=== PATIENT | female | born 1945 | race Caucasian/White ===

== ENCOUNTER → 2018-11-06 | Outpatient (CLI) | payer MEDICARE ==
--- NOTE | ~2018-11-06 | SHMRC ---
[place], [place] [facility] NAME: ELLIE AVILA UNIT #: [id number] ROOM: DOCTOR: UBALDO BRYANT Patient Name: ELLIE AVILA. Date: 11/06/2018 Patient Number: [id number] Treating Therapist:Alicia Marshall Patient Date of : 1945 Location: [facility] Patient Reason for Visit SH Electronic Signature(s) Signed By: Date: Alicia Marshall 11/06/2018 09:47:41 Alicia Marshall 11/06/2018 15:33:16 Entered By: Alicia Marshall on 11/06/2018 09:46:23 Arrival Information Patient Name: ELLIE AVILA. Date: 11/06/2018 Patient Number: [id number] Treating Therapist:Alicia Marshall Patient Date of : 1945 Location: [facility] Patient Subjective Initial evaluation completed to generate medical record. [facility]. Electronic Signature(s) Signed By: Date: Alicia Marshall 11/06/2018 09:47:41 Alicia Marshall 11/06/2018 15:33:16 Entered By: Alicia Marshall on 11/06/2018 09:46:23 Medical History Patient Name: ELLIE AVILA. Date: 11/06/2018 Patient Number: [id number] Treating Therapist:Alicia Marshall Patient Date of : 1945 Location: [facility] Patient Past Medical History Electronic Signature(s) Signed By: Date: Alicia Marshall 11/06/2018 09:47:41 Alicia Marshall 11/06/2018 15:33:16 Entered By: Alicia Marshall on 11/06/2018 09:46:23 Allergy List Patient Name: ELLIE AVILA. Date: 11/06/2018 Patient Number: [id number] Treating Therapist:Alicia Marshall Patient Date of : 1945 Location: [facility] Patient Electronic Signature(s) Signed By: Date: Alicia Marshall 11/06/2018 09:47:41 Alicia Marshall 11/06/2018 15:33:16 Entered By: Alicia Marshall on 11/06/2018 09:46:23 Arrival Information Patient Name: ELLIE AVILA. Date: 11/06/2018 Patient Number: [id number] Treating Therapist:Alicia Marshall Patient Date of : 1945 Location: [facility] Patient [place], [place] [facility] NAME: ELLIE AVILA UNIT #: [id number] ROOM: DOCTOR: UBALDO BRYANT Initial evaluation completed to generate medical record. [facility]. Electronic Signature(s) Signed By: Date: Alicia Marshall 11/06/2018 09:47:41 Alicia Marshall 11/06/2018 15:33:16 Entered By: Alicia Marshall on 11/06/2018 09:46:23 [facility]: ELLIE AVILA. Date: 11/06/2018 Patient Number: [id number] Treating Therapist:Alicia Marshall Patient Date of : 1945 Location: [facility] Patient Diagnosis R13.10 Dysphagia, unspecified Visit Start Time 8:30 AM Visit End Time 9:30 AM Visit Duration 60 minutes Procedures CPT [place] Code Intervention Modifier Minutes Units 29817 5203039 MOTION FLUOROSCOPY/SWALLOW 60 1 Total Timed Minutes 0 Total Treatment Minutes 60 Electronic Signature(s) Signed By: Date: Alicia Marshall 11/06/2018 09:47:41 Alicia Marshall 11/06/2018 15:33:16 Entered By: Alicia Marshall on 11/06/2018 09:47:13 Chief Complaint Patient Name: ELLIE AVILA. Date: 11/06/2018 Patient Number: [id number] Treating Therapist:Alicia Marshall Patient Date of : 1945 Location: [facility] Patient Reason for Visit SH Electronic Signature(s) Signed By: Date: Alicia Marshall 11/06/2018 09:47:41 Alicia Marshall 11/06/2018 15:33:16 Entered By: Alicia Marshall on 11/06/2018 09:46:23 Medical History Patient Name: ELLIE AVILA. Date: 11/06/2018 Patient Number: [id number] Treating Therapist:Alicia Marshall Patient Date of : 1945 Location: [facility] Patient Past Medical History Electronic Signature(s) Signed By: Date: Alicia Marshall 11/06/2018 09:47:41 Alicia Marshall 11/06/2018 15:33:16 [place], [place] [facility] NAME: ELLIE AVILA UNIT #: [id number] ROOM: DOCTOR: UBALDO BRYANT Entered By: Alicia Marshall on 11/06/2018 09:46:23 Allergy List Patient Name: ELLIE AVILA Date: 11/06/2018 Patient Number: [id number] Treating Therapist:Alicia Marshall Patient Date of : 1945 Location: [facility] Patient Electronic Signature(s) Signed By: Date: Alicia Marshall 11/06/2018 09:47:41 Alicia Marshall 11/06/2018 15:33:16 Entered By: Alicia Marshall on 11/06/2018 09:46:23 [facility]
--- NOTE | ~2018-11-06 | SLPIE ---
[place], [place] CLOTHING MANAGER INITIAL EVALUATION NAME: ELLIE AVILA UNIT #: [id number] ROOM: DOCTOR: UBALDO BRYANT Patient Name: ELLIE AVILA Date: 11/06/2018 Patient Date of : 1945 [facility] Start of Care: 09/07/2018 Reason for Treatment: Primary Care Physician: PETE PARK CNP Referring Physician: UBALDO BRYANT Speech-Language Pathology Initial Evaluation Reason for Visit Arrival Information Subjective Initial evaluation completed to generate medical record. Please refer to [facility] for further information. Medical History Past Medical History [facility] Visit Start Time 8:30 AM Visit End Time 9:30 AM Visit Duration 60 minutes Procedures CPT [place] Code Intervention Modifier Minutes Units 0709707 MOTION FLUOROSCOPY/SWALLOW 60 1 26158 Total Timed Minutes 0 Total Treatment Minutes 60 Therapist Signature(s) Signed By: Alicia Marshall [facility] License #: [id number] 11/06/2018, 3:33 PM CM:[facility] [id number] [facility]
--- NOTE | ~2018-11-06 | PROC NOTE ---
[place], [place] PROCEDURE NOTE NAME: ELLIE AVILA UNIT #: [id number] ROOM: DOCTOR: NOEMY COHEN BIRTHDATE: [birth year] DOS: 11/06/2018 MODIFIED BARIUM SWALLOW ORDERING PHYSICIAN: Carla Dominique. RADIOLOGIST: Dr. Mccord. BACKGROUND INFORMATION: The patient is a 73-year-old female who was seen for modified barium swallow. This test was ordered to view the pharyngeal phase of the swallow. The patient reported facial numbness and inability to taste and chew which have occurred for the past 10 years. Medical history also includes AAA repair in 2008, colitis, diverticulitis and hiatal hernia. The patient reported that she chokes easily like on saliva, crumbs and liquids. She stated that choking episodes seem to be increasing in frequency. The patient consumes a regular diet and thin liquid. For today's assessment, the patient was alert and able to follow all commands. Respiratory status was within normal limits. Oral peripheral examination revealed presence of top denture plate and partial bottom plate. Lingual, labial and buccal skills were all within normal limits in terms of strength, range of motion and coordination. The patient was able to volitionally cough and swallow. METHODS AND MATERIALS USED FOR THE EXAMINATION: The patient was positioned in the lateral plane and the exam was viewed under fluoroscopy. The patient was presented with a variety of consistencies to assess swallowing skills including applesauce mixed with barium presented in half teaspoon amounts, barium-coated cookie and sandwich taken in bite size pieces and thin liquid barium taken independently by cup and straw. ORAL PHASE: Unremarkable. PHARYNGEAL PHASE: Unremarkable. ESOPHAGEAL PHASE: This phase of the swallow was not formally assessed during this exam. IMPRESSIONS AND RECOMMENDATIONS: Based upon assessment results, this 73-year-old patient presents with oral and pharyngeal swallowing skills that are within normal limits. There was no penetration, aspiration and no residue occurring with any consistency given. Recommend the patient remain on present diet with use of universal safe swallow precautions. No followup therapy is warranted. Results and recommendations were shared with the patient and she verbalized understanding. Thank you very much for this referral. Should you have any questions regarding this patient, please contact the speech pathologist at [phone]. [place], [place] PROCEDURE NOTE NAME: ELLIE AVILA UNIT #: [id number] ROOM: DOCTOR: NOEMY COHEN BIRTHDATE: [birth year] NOEMY COHEN CM:PROCNOTE:PROCEDURE NOTE [id number] NOEMY COHEN
--- NOTE | ~2018-11-06 | SLPPOC ---
[place], [place] FRUIT BAR MAKER PLAN OF CARE NAME: ELLIE AVILA UNIT #: [id number] ROOM: DOCTOR: UBALDO BRYANT Patient Name: ELLIE AVILA Date: 11/06/2018 Patient Date of : 1945 [facility] Start of Care: 09/07/2018 Reason for Treatment: Visits since start of care: 2 Primary Care Physician: PETE PARK CNP Referring Physician: UBALDO BRYANT Speech-Language Pathology Initial Evaluation Plan of Care Reason for Visit Arrival Information Subjective Initial evaluation completed to generate medical record. Please refer to [employer] for further information. Medical History Past Medical History Therapist Signature(s) Signed By: Alicia Marshall State License #: [id number] 11/06/2018, 3:33 PM Referring Physician Signature I certify the need for these services furnished under this plan of treatment and while under my care. UBALDO BRYANT Date/Time CM:SLPPOC [facility]
--- NOTE | 2018-11-06 09:29 | NUR ---
SPEECH PATHOLOGY Outpatient MBS completed as per orders. This was ordered to view the pharyngeal phase of the swallow. Patient reported facial numbmess and inability to taste and chew which have occurred for the past ten years. Medical history also includes AAA repair in 2009, colitis, diverticulitis, hiatal hernia. Patient reported that she chokes easily, like on saliva, crumbs and liquids. She consumes a regular diet and thin liquid. Oral musculature eval. was completed and was WNL. She was assessed with consistencies including puree, solid foods and thin liquid by cup and straw. Oral and pharyngeal skills were WNL with all consistencies given. Recommend patient remain on present diet with use of universal safe swallow precautions. No follow up is warranted. Results and smiley. were shared with patient who verbalized understanding. Dictated report to follow. Thank you for this referral. NOEMY COHEN MSCCC-ROTOR CASTING MACHINE OPERATOR
== END | disposition home or self-care (01) ==
LOC: RAD/SH 08:27
DX: R13.10 Dysphagia, unspecified (principal)

== ENCOUNTER → 2020-06-27 | Outpatient (CLI) | payer MEDICARE | END | disposition home or self-care (01) | LOC: CARD 00:43 | PROVIDERS: ATTEND Internal Medicine Cardiovascular Disease | DX: I22.1 Subsequent ST elevation (STEMI) myocardial infarction of inferior wall (principal); E87.6 Hypokalemia ==

== ENCOUNTER → 2020-07-02 | Outpatient (CLI) | payer MEDICARE | END | disposition home or self-care (01) | LOC: CP 10:13 | PROVIDERS: ATTEND Preventive Medicine Occupational Medicine | DX: R09.02 Hypoxemia (principal); R06.00 Dyspnea, unspecified ==

== ENCOUNTER → 2023-10-18 | Outpatient (CLI) | payer MEDICARE | END | disposition home or self-care (01) | LOC: RESCLI 15:39 | PROVIDERS: ATTEND Student in an Organized Health Care Education/Training Program | DX: I48.91 Unspecified atrial fibrillation (principal); I25.10 Atherosclerotic heart disease of native coronary artery without angina pectoris; I10 Essential (primary) hypertension; E78.5 Hyperlipidemia, unspecified; M19.90 Unspecified osteoarthritis, unspecified site; G25.81 Restless legs syndrome; G62.9 Polyneuropathy, unspecified; E66.9 Obesity, unspecified; Z68.30 Body mass index [BMI] 30.0-30.9, adult; Z79.82 Long term (current) use of aspirin; Z79.899 Other long term (current) drug therapy; Z98.890 Other specified postprocedural states; Z90.710 Acquired absence of both cervix and uterus; Z82.49 Family history of ischemic heart disease and other diseases of the circulatory system; Z80.9 Family history of malignant neoplasm, unspecified; Z80.8 Family history of malignant neoplasm of other organs or systems; Z88.1 Allergy status to other antibiotic agents; Z88.0 Allergy status to penicillin; Z88.2 Allergy status to sulfonamides; Z88.8 Allergy status to other drugs, medicaments and biological substances ==